=== PATIENT | male | born 1965 | race Caucasian/White ===

== ENCOUNTER 2021-05-17 20:38 | Emergency (ER) | payer OTHER ==
[2021-05-17] MEDS: Nitroglycerin 0.4 MG Tab.SL SL ONE (21:05)
--- NOTE | 2021-05-17 21:15 | EDM.PDOC ---
ED HPI GENERAL MEDICAL PROBLEM - General Chief Complaint: Chest Pain Stated Complaint: chest pain Time Seen by Provider: 05/17/21 20:48 Source of Information: Reports: Patient History Limitations: Reports: No Limitations - History of Present Illness INITIAL COMMENTS - FREE TEXT/NARRATIVE: Sudden left chest pain at 18:45. Feels like pulled muscle. Pressure on area/some left arm movements make it worse. At same time noticed tingling/paresthesia right forearm and hand. No cardiac history. No previous similar discomfort. Denies injury/lifting but did get Covid booster right arm last Monday, 3 days ago. No other changes such as SOB/nausea/sweating/chest pressure. Chest Pain Score (Numeric/FACES): 2 - Related Data Allergies Allergy/AdvReac Type Severity Reaction Status Date / Time aspirin Allergy Mild GI upset Verified 05/17/21 20:50 Home Meds: Home Meds . [No Known Home Meds] 07/21/15 [History] Past Medical History Cardiovascular History: Reports: High Cholesterol Endocrine/Metabolic History: Reports: Obesity/BMI 30+ Social & Family History - Tobacco Use Tobacco Use Status *Q: Current Every Day Tobacco User Years of Tobacco use: 40 Packs/Tins Daily: 0.5 - Caffeine Use Caffeine Use: Reports: Soda - Recreational Drug Use Recreational Drug Use: No ED ROS GENERAL - Review of Systems Review Of Systems: Comprehensive ROS is negative, except as noted in HPI. ED EXAM, GENERAL - Physical Exam Exam: See Below Exam Limited By: No Limitations General Appearance: Alert, No Apparent Distress, Obese Eye Exam: Bilateral Eye: EOMI, PERRL Ears: Normal External Exam, Normal Canal, Hearing Grossly Normal Nose: No: Nasal Deformity, Nasal Swelling, Nasal Drainage Throat/Mouth: Normal Lips, Normal Voice, No Airway Compromise Head: Atraumatic, Normocephalic Neck: Supple, Non-Tender, Full Range of Motion Respiratory/Chest: No Respiratory Distress, Lungs Clear, Normal Breath Sounds, Other (left chest upper quadrant very tender with palpation/reproduces chest pain complaint.) Cardiovascular: Regular Rate, Rhythm, No Edema, No Murmur GI/Abdominal: Normal Bowel Sounds, Soft, Non-Tender, No Distention (Male) Exam: Deferred Rectal (Males) Exam: Deferred Back Exam: No: CVA Tenderness (L), CVA Tenderness (R), Muscle Spasm Extremities: Normal Range of Motion, Non-Tender, Normal Capillary Refill Neurological: Alert, Oriented, CN II-XII Intact, Normal Cognition, Normal Gait, No Motor/Sensory Deficits Psychiatric: Normal Affect, Normal Mood Skin Exam: Warm, Dry, Intact, Normal Color #1 Interpretation EKG Date: 05/17/21 Time: 21:09 Rhythm: NSR Rate (Beats/Min): 92 [place]: Normal P-Wave: Present QRS: Normal ST-T: Normal QT: Normal Comparison: NA - No Prior EKG (no obvious acute ST changes suggestive of acute ischemia.) Course - Vital Signs Last Recorded V/S: Last Vital Signs Temp 36.4 C 05/17/21 20:52 Pulse 99 05/17/21 22:15 Resp 21 H 05/17/21 22:15 BP 125/76 05/17/21 22:15 Pulse Ox 96 05/17/21 22:15 - Orders/Labs/Meds Orders: Active Orders 24 hr Category Date Time Status Chest 2V [CR] Stat Exams 05/17/21 20:48 Taken Labs: Laboratory Tests 05/17/21 05/17/21 05/17/21 Range/Units 20:48 21:02 21:02 WBC 5.5 (4.0-10.2) K/uL RBC 5.32 (4.33-5.41) M/uL Hgb 17.4 H (13.1-16.8) g/dL Hct 50.9 H (39.0-49.0) % MCV 95.7 (84.0-98.0) fL MCH 32.7 (28.2-33.3) pg MCHC 34.2 (31.7-36.0) g/dL RDW 12.7 (11.2-14.1) % Plt Count 224 (150-350) K/uL Neut % (Auto) 37.9 L (45.0-80.0) % Lymph % (Auto) 44.2 (10.0-50.0) % [place] % (Auto) 14.4 H (2.0-14.0) % Eos % (Auto) 3.1 (0.0-5.0) % Baso % (Auto) 0.4 (0.0-2.0) % Neut # (Auto) 2.08 (1.40-7.00) K/uL Lymph # (Auto) 2.42 (0.50-3.50) K/uL [place] # (Auto) 0.79 (0.00-1.00) K/uL Eos # (Auto) 0.17 (0.00-0.50) K/uL Baso # (Auto) 0.02 (0.00-0.20) K/uL D-Dimer, Quantitative < 100 (0-400) ng/mL Sodium (136-145) mmol/L Potassium (3.5-5.1) mmol/L Chloride (98-107) mmol/L Carbon Dioxide (21.0-32.0) mmol/L Anion Gap (7-15) meq/L BUN (7-18) mg/dL Creatinine (0.51-1.17) mg/dL Est Cr Clr Drug Dosing Estimated GFR (MDRD) mL/min Glucose (70-99) mg/dL Lactic Acid (0.4-2.0) mmol/L Calcium (8.5-10.1) mg/dL Magnesium (1.8-2.4) mg/dL Total Bilirubin (0.2-1.0) mg/dL AST (15-37) U/L ALT (12-78) U/L Alkaline Phosphatase (46-116) IU/L Troponin I High Sens (<=76) ng/L NT-Pro-B Natriuret Pep (0-125) pg/mL Total Protein (6.4-8.2) g/dL Albumin (3.4-5.0) g/dL SARS-CoV-2 Ag (Rapid) Negative (NEGATIVE) 05/17/21 05/17/21 05/17/21 Range/Units 21:02 21:02 21:02 WBC (4.0-10.2) K/uL RBC (4.33-5.41) M/uL Hgb (13.1-16.8) g/dL Hct (39.0-49.0) % MCV (84.0-98.0) fL MCH (28.2-33.3) pg MCHC (31.7-36.0) g/dL RDW (11.2-14.1) % Plt Count (150-350) K/uL Neut % (Auto) (45.0-80.0) % Lymph % (Auto) (10.0-50.0) % [place] % (Auto) (2.0-14.0) % Eos % (Auto) (0.0-5.0) % Baso % (Auto) (0.0-2.0) % Neut # (Auto) (1.40-7.00) K/uL Lymph # (Auto) (0.50-3.50) K/uL [place] # (Auto) (0.00-1.00) K/uL Eos # (Auto) (0.00-0.50) K/uL Baso # (Auto) (0.00-0.20) K/uL D-Dimer, Quantitative (0-400) ng/mL Sodium 145 (136-145) mmol/L Potassium 4.0 (3.5-5.1) mmol/L Chloride 107 (98-107) mmol/L Carbon Dioxide 25.8 (21.0-32.0) mmol/L Anion Gap 12.2 (7-15) meq/L BUN 11 (7-18) mg/dL Creatinine 0.85 (0.51-1.17) mg/dL Est Cr Clr Drug Dosing TNP Estimated GFR (MDRD) > 60 mL/min Glucose 116 H (70-99) mg/dL Lactic Acid 1.7 (0.4-2.0) mmol/L Calcium 8.8 (8.5-10.1) mg/dL Magnesium 2.2 (1.8-2.4) mg/dL Total Bilirubin 0.5 (0.2-1.0) mg/dL AST 45 H (15-37) U/L ALT 91 H (12-78) U/L Alkaline Phosphatase 82 (46-116) IU/L Troponin I High Sens 4 (<=76) ng/L NT-Pro-B Natriuret Pep 41 (0-125) pg/mL Total Protein 7.7 (6.4-8.2) g/dL Albumin 3.6 (3.4-5.0) g/dL SARS-CoV-2 Ag (Rapid) (NEGATIVE) Meds: Medications Discontinued Medications Generic Name Dose Route Start Last Admin Trade Name Freq PRN Reason Stop Dose Admin Nitroglycerin 0.4 mg 05/17/21 20:55 05/17/21 21:05 Nitroglycerin 0.4 Mg Tab.Sl SL 05/17/21 20:56 0.4 mg ONETIME ONE Administration - Radiology Interpretation Free Text/Narrative:: Chest xray/no focal acute changes noted. Pending radiology review. - Re-Assessments/Exams Free Text/Narrative Re-Assessment/Exam: 05/17/21 23:11 Labs unremarkable. EKG unremarkable. Results reviewed with patient. Suspect atypical chest pain. Differential includes soft tissue injury/muscle. Patient declined observation/telemetry but is willing to return tomorrow morning for second troponin draw. Precautions reviewed. To return to ER prn sudden worsening symptoms. If troponin negative in AM recommend follow up with PCP to schedule stress test. If troponin elevated, further planning will be needed at that time. Departure - Departure Time of Disposition: 22:24 Disposition: Home, Self-Care 01 Clinical Impression: Atypical chest pain - Discharge Information *PRESCRIPTION DRUG MONITORING PROGRAM REVIEWED*: Not Applicable *COPY OF PRESCRIPTION DRUG MONITORING REPORT IN PATIENT GITA: Not Applicable Instructions: Chest Wall Pain, [id number], Nonspecific Chest Pain, Adult Referrals: PCP,None [Primary Care Provider] - Forms: ED Department Discharge Additional Instructions: Recommend recheck Troponin (lab) tomorrow at 0900. If elevated further planning will be required. If negative recommend you follow up within the week with your primary provider and discuss arranging a stress test to more completely rule out cardiac involvement in the chest pain. Uncertain as to what exactly is causing the pain. It might be a pulled muscle. Continue to observe for changes/new symptoms that may help more firmly identify cause. OK to take Tylenol or Ibuprofen. Sepsis Event Note (ED) - Evaluation Sepsis Screening Result: No Definite Risk - Focused Exam Vital Signs: Vital Signs Temp Pulse Resp BP BP Pulse Ox 05/17/21 22:15 99 21 H 125/76 96 05/17/21 21:30 108 H 17 122/69 96 05/17/21 21:05 145/72 H 05/17/21 21:00 92 17 145/72 H 100 05/17/21 20:52 36.4 C 95 15 158/82 H 100 - My Orders Last 24 Hours: My Active Orders 05/17/21 20:48 Chest 2V [CR] Stat - Assessment/Plan Last 24 Hours: My Active Orders 05/17/21 20:48 Chest 2V [CR] Stat
[2021-05-17 21:35] LABS: ANION GAP 12.2 meq/L (7-15); CHLORIDE,CL 107 mmol/L (98-107); SODIUM,NA 145 mmol/L (136-145)
[2021-05-17 23:10] VITALS: BP 125/76; PULSE 99
== END 2021-05-17 22:30 | disposition home or self-care (01) ==
LOC: LL.ED 20:38
DX: R07.89 Other chest pain (principal); E78.00 Pure hypercholesterolemia, unspecified; E66.9 Obesity, unspecified; Z68.30 Body mass index [BMI] 30.0-30.9, adult; Z88.8 Allergy status to other drugs, medicaments and biological substances; Z72.0 Tobacco use; Z20.822 Contact with and (suspected) exposure to COVID-19
CPT/HCPCS: 36415; 71046; 80053; 83605; 83735; 83880; 84484; 85025; 85379; 87426; 93005; 99285-25; A9270-GY